=== PATIENT | female | born 1940 | race Two or more races ===

== ENCOUNTER 2017-04-08 10:20 | Outpatient (CLI) | payer OTHER | END 2017-04-08 10:27 | disposition home or self-care (01) | LOC: LAB 10:20 | DX: D64.89 Other specified anemias (principal); E03.8 Other specified hypothyroidism; E78.2 Mixed hyperlipidemia; N30.90 Cystitis, unspecified without hematuria; E11.9 Type 2 diabetes mellitus without complications ==

== ENCOUNTER → 2018-01-15 10:16 | Outpatient (CLI) | payer OTHER | END | disposition home or self-care (01) | LOC: LAB 10:16 | DX: D64.89 Other specified anemias (principal); E78.2 Mixed hyperlipidemia; E11.9 Type 2 diabetes mellitus without complications; N39.0 Urinary tract infection, site not specified; M81.0 Age-related osteoporosis without current pathological fracture; I25.10 Atherosclerotic heart disease of native coronary artery without angina pectoris ==

== ENCOUNTER 2018-12-08 09:30 | Outpatient (CLI) | payer OTHER | END 2018-12-08 09:35 | disposition home or self-care (01) | LOC: LAB 09:30 | DX: D64.89 Other specified anemias (principal); E78.2 Mixed hyperlipidemia; E03.8 Other specified hypothyroidism; N39.0 Urinary tract infection, site not specified; E11.9 Type 2 diabetes mellitus without complications ==

== ENCOUNTER 2018-12-26 08:48 | Outpatient (CLI) | payer OTHER | END 2018-12-26 09:00 | disposition home or self-care (01) | LOC: NUCLEAR 08:48 | DX: I25.10 Atherosclerotic heart disease of native coronary artery without angina pectoris (principal); I11.9 Hypertensive heart disease without heart failure | CPT/HCPCS: 78452; 93017; A9500 ==

== ENCOUNTER 2019-05-04 10:07 | Outpatient (CLI) | payer OTHER | END 2019-05-04 10:11 | disposition home or self-care (01) | LOC: LAB 10:07 | DX: D64.89 Other specified anemias (principal); E78.2 Mixed hyperlipidemia; E03.8 Other specified hypothyroidism; N39.0 Urinary tract infection, site not specified; Z12.11 Encounter for screening for malignant neoplasm of colon ==

== ENCOUNTER 2019-05-04 10:55 | Outpatient (CLI) | payer OTHER | END 2019-05-04 11:13 | disposition home or self-care (01) | LOC: TOM 10:55 | DX: M54.5 Low back pain (principal) ==

== ENCOUNTER 2019-10-14 10:16 | Outpatient (CLI) | payer OTHER | END 2019-10-14 10:23 | disposition home or self-care (01) | LOC: LAB 10:16 | PROVIDERS: ATTEND Internal Medicine | DX: D64.89 Other specified anemias (principal); E11.9 Type 2 diabetes mellitus without complications; E03.8 Other specified hypothyroidism; N39.0 Urinary tract infection, site not specified; E55.9 Vitamin D deficiency, unspecified ==

== ENCOUNTER 2020-03-15 14:12 | Outpatient (CLI) | payer OTHER | END 2020-03-15 14:26 | disposition home or self-care (01) | LOC: LAB 14:12 | PROVIDERS: ATTEND Internal Medicine | DX: M25.551 Pain in right hip (principal); G31.89 Other specified degenerative diseases of nervous system; M25.552 Pain in left hip; M54.5 Low back pain; N39.0 Urinary tract infection, site not specified ==

== ENCOUNTER 2020-04-13 11:39 | Outpatient (CLI) | payer OTHER | END 2020-04-13 11:47 | disposition home or self-care (01) | LOC: LAB 11:39 | PROVIDERS: ATTEND Internal Medicine | DX: D64.89 Other specified anemias (principal); E11.9 Type 2 diabetes mellitus without complications; E78.2 Mixed hyperlipidemia; E03.8 Other specified hypothyroidism; N39.0 Urinary tract infection, site not specified; E55.9 Vitamin D deficiency, unspecified ==

== ENCOUNTER 2020-04-22 10:35 | Outpatient (CLI) | payer OTHER | END 2020-04-22 11:40 | disposition home or self-care (01) | LOC: LAB 10:35 | PROVIDERS: ATTEND Internal Medicine Cardiovascular Disease | DX: I11.9 Hypertensive heart disease without heart failure (principal); D64.89 Other specified anemias ==

== ENCOUNTER 2020-04-25 14:13 | Outpatient (CLI) | payer OTHER | END 2020-04-25 14:18 | disposition home or self-care (01) | LOC: LAB 14:13 | PROVIDERS: ATTEND Internal Medicine | DX: D64.89 Other specified anemias (principal); Z12.11 Encounter for screening for malignant neoplasm of colon; D51.8 Other vitamin B12 deficiency anemias; D50.8 Other iron deficiency anemias ==

== ENCOUNTER 2020-05-12 10:57 | Outpatient (CLI) | payer OTHER | END 2020-05-12 11:37 | disposition home or self-care (01) | LOC: LAB 10:57 | PROVIDERS: ATTEND Internal Medicine | DX: D64.89 Other specified anemias (principal); Z12.11 Encounter for screening for malignant neoplasm of colon; D51.8 Other vitamin B12 deficiency anemias; D50.8 Other iron deficiency anemias ==

== ENCOUNTER 2020-05-18 10:37 | Outpatient (CLI) | payer OTHER | END 2020-05-18 10:44 | disposition home or self-care (01) | LOC: LAB 10:37 | PROVIDERS: ATTEND Internal Medicine | DX: D64.89 Other specified anemias (principal) ==

== ENCOUNTER → 2020-07-28 11:04 | Outpatient (CLI) | payer OTHER | END | disposition home or self-care (01) | LOC: LAB 11:04 | PROVIDERS: ATTEND Internal Medicine Hematology & Oncology | DX: D50.8 Other iron deficiency anemias (principal); I10 Essential (primary) hypertension; R74.02 Elevation of levels of lactic acid dehydrogenase [LDH]; K76.89 Other specified diseases of liver; R79.89 Other specified abnormal findings of blood chemistry; R97.0 Elevated carcinoembryonic antigen [CEA]; R97.8 Other abnormal tumor markers; D62 Acute posthemorrhagic anemia; E78.2 Mixed hyperlipidemia; Z95.5 Presence of coronary angioplasty implant and graft; Z95.1 Presence of aortocoronary bypass graft; I25.118 Atherosclerotic heart disease of native coronary artery with other forms of angina pectoris ==

== ENCOUNTER → 2020-09-21 12:22 | Outpatient (CLI) | payer OTHER | END | disposition home or self-care (01) | LOC: LAB 12:22 | PROVIDERS: ATTEND Internal Medicine Hematology & Oncology | DX: D50.8 Other iron deficiency anemias (principal); R79.89 Other specified abnormal findings of blood chemistry; I10 Essential (primary) hypertension; R74.02 Elevation of levels of lactic acid dehydrogenase [LDH]; K76.89 Other specified diseases of liver; D51.8 Other vitamin B12 deficiency anemias; R19.5 Other fecal abnormalities; D62 Acute posthemorrhagic anemia; E78.2 Mixed hyperlipidemia; Z95.5 Presence of coronary angioplasty implant and graft; Z95.1 Presence of aortocoronary bypass graft; I25.119 Atherosclerotic heart disease of native coronary artery with unspecified angina pectoris ==

== ENCOUNTER 2020-11-15 10:49 | Outpatient (CLI) | payer OTHER | END 2020-11-15 11:03 | disposition home or self-care (01) | LOC: LAB 10:49 | PROVIDERS: ATTEND Internal Medicine Hematology & Oncology | DX: D50.8 Other iron deficiency anemias (principal); R79.89 Other specified abnormal findings of blood chemistry; I10 Essential (primary) hypertension; R74.02 Elevation of levels of lactic acid dehydrogenase [LDH]; K76.89 Other specified diseases of liver; D51.8 Other vitamin B12 deficiency anemias; R19.5 Other fecal abnormalities; D62 Acute posthemorrhagic anemia; E78.2 Mixed hyperlipidemia; Z95.5 Presence of coronary angioplasty implant and graft; I25.119 Atherosclerotic heart disease of native coronary artery with unspecified angina pectoris; Z12.11 Encounter for screening for malignant neoplasm of colon ==

== ENCOUNTER → 2020-12-29 | Outpatient (CLI) | payer OTHER | END | disposition home or self-care (01) | LOC: RAD 15:42 | PROVIDERS: ATTEND Internal Medicine Cardiovascular Disease | DX: M51.37 Other intervertebral disc degeneration, lumbosacral region (principal); I10 Essential (primary) hypertension ==

== ENCOUNTER 2021-02-20 12:04 | Outpatient (CLI) | payer OTHER | END 2021-02-20 12:05 | disposition home or self-care (01) | LOC: LAB 12:04 | PROVIDERS: ATTEND Internal Medicine Hematology & Oncology | DX: D50.8 Other iron deficiency anemias (principal); R79.89 Other specified abnormal findings of blood chemistry; I10 Essential (primary) hypertension; R74.02 Elevation of levels of lactic acid dehydrogenase [LDH]; K76.89 Other specified diseases of liver; D51.8 Other vitamin B12 deficiency anemias; R19.5 Other fecal abnormalities; D62 Acute posthemorrhagic anemia; K29.51 Unspecified chronic gastritis with bleeding; D53.0 Protein deficiency anemia; E78.2 Mixed hyperlipidemia; Z95.5 Presence of coronary angioplasty implant and graft; Z95.1 Presence of aortocoronary bypass graft; I25.119 Atherosclerotic heart disease of native coronary artery with unspecified angina pectoris; Z12.11 Encounter for screening for malignant neoplasm of colon ==

== ENCOUNTER 2022-08-29 10:16 | Outpatient (CLI) | payer OTHER | END 2022-08-29 10:18 | disposition home or self-care (01) | LOC: NUCLEAR 10:16 | PROVIDERS: ATTEND Internal Medicine Cardiovascular Disease | DX: I10 Essential (primary) hypertension (principal); R07.9 Chest pain, unspecified ==

== ENCOUNTER 2022-08-30 10:03 | Outpatient (CLI) | payer OTHER | END 2022-08-30 10:09 | disposition home or self-care (01) | LOC: NUCLEAR 10:03 | PROVIDERS: ATTEND Internal Medicine Cardiovascular Disease | DX: I87.2 Venous insufficiency (chronic) (peripheral) (principal) ==

== ENCOUNTER 2022-10-03 11:10 | Outpatient (CLI) | payer OTHER | END 2022-10-03 11:14 | disposition home or self-care (01) | LOC: NUCLEAR 11:10 | PROVIDERS: ATTEND Internal Medicine Cardiovascular Disease | DX: I73.9 Peripheral vascular disease, unspecified (principal) ==

== ENCOUNTER 2022-12-27 13:50 | Outpatient (CLI) | payer OTHER | END 2022-12-27 13:56 | disposition home or self-care (01) | LOC: RAD 13:50 | PROVIDERS: ATTEND Orthopaedic Surgery Hand Surgery | DX: M50.90 Cervical disc disorder, unspecified, unspecified cervical region (principal) ==

== ENCOUNTER 2023-01-10 15:11 | Outpatient (CLI) | payer OTHER | END 2023-01-10 15:25 | disposition home or self-care (01) | LOC: LAB 15:11 | PROVIDERS: ATTEND Internal Medicine Cardiovascular Disease | DX: N39.0 Urinary tract infection, site not specified (principal) ==

== ENCOUNTER 2023-02-18 10:14 | Outpatient (CLI) | payer OTHER | END 2023-02-18 10:16 | disposition home or self-care (01) | LOC: MRI 10:14 | PROVIDERS: ATTEND Physical Medicine & Rehabilitation | DX: M54.50 Low back pain, unspecified (principal); M54.2 Cervicalgia | CPT/HCPCS: 72141; 72148 ==

== ENCOUNTER 2023-04-16 11:45 | Outpatient (CLI) | payer OTHER | END 2023-04-16 11:52 | disposition home or self-care (01) | LOC: SONOGRAMA 11:45 | PROVIDERS: ATTEND Internal Medicine Cardiovascular Disease | DX: M54.50 Low back pain, unspecified (principal); M12.9 Arthropathy, unspecified ==

== ENCOUNTER 2023-04-16 13:19 | Outpatient (CLI) | payer OTHER | END 2023-04-16 13:20 | disposition home or self-care (01) | LOC: NUCLEAR 13:19 | PROVIDERS: ATTEND Physical Medicine & Rehabilitation | DX: M81.0 Age-related osteoporosis without current pathological fracture (principal) ==

== ENCOUNTER 2024-04-20 13:51 | Outpatient (CLI) | payer OTHER | END 2024-04-20 13:53 | disposition home or self-care (01) | LOC: TOM 13:51 | PROVIDERS: ATTEND Urology | DX: R31.0 Gross hematuria (principal) ==

== ENCOUNTER 2024-06-08 13:17 | Outpatient (CLI) | payer OTHER | END 2024-06-08 13:26 | disposition home or self-care (01) | LOC: TOM 13:17 | PROVIDERS: ATTEND Internal Medicine Cardiovascular Disease | DX: R42 Dizziness and giddiness (principal); R51.9 Headache, unspecified ==

== ENCOUNTER 2024-06-08 14:08 | Outpatient (CLI) | payer OTHER ==
[2024-06-08 14:59] LABS: HEMATOCRIT 31.9 % (36.0-45.00); MEAN CELL VOLUME 89.9 fL (80.00-100.00); MEAN CORPUSCULAR HGB CONC 32.6 g/dl (32.0-36.0); PLATELET COUNT 181 K/uL (150-450); RED BLOOD COUNT 3.55 M/uL (4.00-6.00); RED CELL DISTRIBUTION WIDTH 14.7 % (11.5-14.5)
[2024-06-08 15:04] LABS: HEMOGLOBIN 10.4 g/dL (12.0-15.00); MEAN CORPUSCULAR HEMOGLOBIN 29.2 pg (27.00-32.0)
[2024-06-08 15:22] LABS: ERYTHROCYTE SEDIMENTATION RATE 32 mm/hr
== END 2024-06-08 14:14 | disposition home or self-care (01) ==
LOC: LAB 14:08
PROVIDERS: ATTEND Internal Medicine Cardiovascular Disease
DX: J32.9 Chronic sinusitis, unspecified (principal); H66.90 Otitis media, unspecified, unspecified ear

== ENCOUNTER 2024-07-08 14:32 | Outpatient (CLI) | payer OTHER | END 2024-07-08 14:36 | disposition home or self-care (01) | LOC: RAD 14:32 | PROVIDERS: ATTEND Urology | DX: N20.0 Calculus of kidney (principal) ==